=== PATIENT | male | born 2000 | race Hispanic/Latino ===

== ENCOUNTER 2023-07-02 06:40 | Emergency (ER) | payer BC ==
[~2023-07-02] VITALS: Ht 182.9 cm; Wt 88.9 kg
[2023-07-02 06:42] VITALS: BP 142/76; PULSE 73; RESP 20
[2023-07-02] MEDS ORDERED: DOXY100T21 PO (07:45)
[2023-07-02] MEDS ORDERED: DOXYCYCLINE HYCLATE 100 MG TABLET PO SCH (08:00)
== END 2023-07-02 07:51 | disposition home or self-care (01) ==
LOC: EDH 06:40
DX: A64 Unspecified sexually transmitted disease (principal); Z76.0 Encounter for issue of repeat prescription